=== PATIENT | female | born 1975 | race Two or more races ===

== ENCOUNTER 2024-07-02 17:24 | Emergency (ER) | payer SELFPAY ==
[2024-07-02] VITALS (7 sets, daily range): BP systolic 133–154; BP diastolic 80–107; PULSE 68–98; RESP 14–18; TEMP 36.5–36.7; O2SAT 96–100
--- NOTE | 2024-07-02 17:39 | EKG_ITS ---
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
--- NOTE | 2024-07-02 17:40 | EDNOTE_ITS ---
<Statement entered by Em Matamoros MD - 07/05/24 04:22> As co-signing physician, I was present and available for consult prn. I concur with the plan and care as documented by the midlevel provider. ED Seizures RME/HPI General Chief Complaint: Seizure Stated Complaint: SEIZURES Time Seen by Provider: 07/02/24 17:35 Arrival date/time: 07/02/24 17:24 RME / HPI RME / HPI Narrative: 48-year-old female patient with significant history of hypertension seizure disorder currently taking Keppra 1 g twice daily, last dose earlier this morning, was brought in by EMS for evaluation regarding witnessed tonic-clonic seizure. Apparently patient was having sudden onset of dizziness, blurry vision and suddenly does not remember what happened. Per EMS patient had [id number]-[id number] episode of seizure for total of 7 times lasting for few seconds. No medication was given prior to arrival on my initial evaluation patient was noted to be alert oriented x 3 answer question appropriately denies any other complaints except for headache. Patient did not bite her tongue patient did not have any incontinence. Related Data Home Medications ?Medication ?Instructions ?Recorded ?Confirmed amlodipine 10 mg tablet (Norvasc) 10 mg PO DAILY 01/0801/08/22 losartan 100 1 tab PO QDAY 01/08/2201/08 mg-hydrochlorothiazide 25 mg tablet propranolol 40 mg tablet 40 mg PO DAILY 01/08/2209/22 Previous Rx's ?Medication ?Instructions ?Recorded ferrous sulfate 300 mg (60 mg 300 mg (5 mL) PO BIDWM # 60 mL 01/13/22 iron)/5 mL oral liquid levetiracetam 500 mg/5 mL 1,000 mg (10 mL) IVP BID #60 mL 01/13/22 intravenous solution Allergies Allergy/AdvReac Type Severity Reaction Status Date / Time No Known Allergies Allergy Verified 01/08/22 18:01 Review of Systems Review of Systems Narrative Review of Systems: Review of system reviewed and within normal limits except mentioned in HPI ED Exam Narrative Physical exam: VITAL SIGNS: Reviewed. GENERAL APPEARANCE: Alert and interactive, follows commands, no acute distress, HEAD AND FACE: Non-traumatic. ENT: PERRL, pink conjunctivitis, eyelid no trauma, Mucous membrane moist. NECK: Supple, nontender, no nuchal rigidity. CHEST: No tenderness, no crepitus, no paradoxical movement, no retractions. LUNGS: Clear, well ventilated, symmetric, no rales, no wheezing, no ronchi, no stridor, good breath sounds bilaterally. HEART: Regular rate, regular rhythm, no murmur, no gallops. ABDOMEN: Soft, positive bowel sounds, nondistended, no guarding, nontender, no rebound, no masses, RECTAL: Deferred. GENITAL: Deferred. NEUROLOGICAL: Gross motor function intact sensory function intact, Appropriate for age. MUSCULOSKELETAL: low back nontender, full range of motion. EXTREMITIES: Nontender, full range of motion. SKIN: Color pink, dry, no rash, no lacerations, no abrasions, no contusions. LYMPHATICS: Deferred. Course Quality Measures none Orders Category Date Time Status EKG (ED ONLY) *Do not use* NOW Care 07/02/24 17:39 Completed EKG (ED Only) Stat Exams 07/02/24 17:39 Draft CBC [CBC] Stat Lab 07/02/24 17:45 Completed CMP [Comprehensive Metabolic Panel] Stat Lab 07/02/24 17:45 Completed Lactate (Lactic Acid) Stat Lab 07/02/24 17:45 [address] Review Blood Smear Stat Lab 07/02/24 17:45 Completed UA, C/S IF [Urinalysis, C/S if Indicated] Stat Lab 07/02/24 21:27 Completed Acetaminophen Tab [Tylenol ES Tab] Med 07/02/24 17:42 Discontinued 1,000 mg PO X1 ONE LORazepam [Ativan Inj] Med 07/02/24 17:39 Discontinued 1 mg IVP X1 ONE Ringers Lactated 1000 ml [Lactated Ringers] 1,000 ml Med 07/02/24 17:39 Discontinued IV 999 mls/hr levETIRAcetam INJ [Keppra Inj] Med 07/02/24 17:39 Discontinued 1,000 mg IVP X1 ONE Vital Signs Vital signs: Vital Signs Temperature 98.0 F 07/02/24 17:48 Pulse Rate 73 07/02/24 17:48 Respiratory Rate 15 07/02/24 17:48 Blood Pressure 137/95 H 07/02/24 17:48 Pulse Oximetry (%) 96 07/02/24 17:48 Oxygen Delivery Method Room Air 07/02/24 17:48 Seizure MDM Narrative MDM Narrative:: 48-year-old female patient with significant history of hypertension seizure disorder currently taking Keppra 1 g twice daily, last dose earlier this morning, was brought in by EMS for evaluation regarding witnessed tonic-clonic seizure. Apparently patient was having sudden onset of dizziness, blurry vision and suddenly does not remember what happened. Per EMS patient had efag-ea-uclc episode of seizure for total of 7 times lasting for few seconds. No medication was given prior to arrival on my initial evaluation patient was noted to be alert oriented x 3 answer question appropriately denies any other complaints except for headache. Patient did not bite her tongue patient did not have any incontinence. No recurrence of seizure noted in the emergency room patient is fully back to baseline after patient received IV fluids, Ativan and Keppra IV Patient appears nontoxic and hemodynamically stable. Patient discharged home and instructed to follow-up with neurologist in 24 to 48 hours. Instructed to return to the emergency department immediately if worsening of symptoms Patient data External records reviewed:: None Clinical information provided by:: patient Social determinants that could affect healthcare access:: none Patient has the following chronic illnesses:: Seizure disorder How is presenting disease/condition affected by chronic disease/condition?: exacerbated by Evaluation data The following diagnostics were reviewed and interpreted by me:: lab results and EKG tracing(s) Lab and/or radiology exams considered but not ordered:: None Interpretation Summary: EKG as interpreted by me showed normal sinus rhythm, ventricular rate of [address] segment elevation or depression noted. Patient's workup today all came back unremarkable including normal lactic acid. Medications / Prescriptions Medications or Prescriptions considered but not ordered:: None Medication administrations:: Medication Administration History Discontinued Medications Acetaminophen (Acetaminophen 500 Mg Tablet) 1,000 mg PO X1 ONE Stop: 07/02/24 17:43 Last Admin: 07/02/24 17:55 Dose: 1,000 mg Documented By: AMA Lactated Ringer's (Lactated Ringers) 1,000 mls @ 999 mls/hr IV .Q1H1M ONE Stop: 07/02/24 18:39 Last Infusion: 07/02/24 19:20 Dose: Infused Documented By: Admin: 07/02/24 17:54 Dose: 999 mls/hr Documented By: AMA Levetiracetam (Levetiracetam Inj 100 Mg/Ml Vial 5ml) 1,000 mg IVP X1 ONE Stop: 07/02/24 17:40 Last Admin: 07/02/24 17:53 Dose: 1,000 mg Documented By: VG Lorazepam (Lorazepam 2 Mg/Ml Vial) 1 mg IVP X1 ONE Stop: 07/02/24 17:40 Last Admin: 07/02/24 17:54 Dose: 1 mg Documented By: VG Ativan Keppra and IV fluids and Tylenol Consultations Consultation(s) initiated? (list below): No Diagnosis Seizure Differential Diagnosis: intractable seizure disorder, focal seizure and generalized seizure Most likely diagnosis given after review of the tests above:: Breakthrough seizure Admission Indicated Admission indicated?: not indicated Admission Request Was there a request for admission?: No Disposition Plan Disposition Plan: Discharge Discharge Attestation Discharge Attestation: The patient and all family members were given an opportunity to ask questions and understood the discharge instructions. Discharge instructions specifically effects, indications for sooner follow up or return to the emergency department, and the expected course of current diagnosis. Patient condition: Stable Discharge Plan Plan Patient Disposition: HOME (Self Care) Discharge Disposition comment: Stable Prescriptions/Referrals Prescriptions/Med Rec: No Action losartan-hydrochlorothiazide 100-25 mg Tablet 1 tab PO QDAY propranolol 40 mg Tablet 40 mg PO DAILY amlodipine [Norvasc] 10 mg Tablet 10 mg PO DAILY ferrous sulfate 300 mg (60 mg iron)/5 mL Liquid 300 mg PO BIDWM Qty: 60 0RF levetiracetam 500 mg/5 mL Solution 1,000 mg IVP BID Qty: 60 0RF Referrals: Ky Eastman MD [Primary Care Provider] - In 1 week Problem List Clinical Impression: Breakthrough seizure Patient/Caregiver Discharge Instructions Education Materials: Epilepsy: Safety During a Seizure Additional Instructions: Thank you for the opportunity for serving you today. You are stable for discharged . You are advised to: Follow-up with your neurologist in 1 to 2 days Return to ED for worsening of symptoms Increase oral fluids Please do not skip your seizure medication as instructed by your neurologist Print Language: Grenadian Stand Alone Forms: Jacque Award Info., Patient Portal Info Letter TRISH/DAISY Supervising Physician TRISH/DAISY Supervising Physician: MD Kandis
[2024-07-02] MEDS: levETIRAcetam INJ 100 MG/ML VIAL 5ML 1000 MG IVP (17:53)
[2024-07-02] MEDS: LORazepam 2 MG/ML VIAL 1 MG IVP (17:54)
[2024-07-02] MEDS: RINGERS LACTATED 1000 ML 1,000 ML 999 ML IV (17:54)
[2024-07-02] MEDS: ACETAMINOPHEN 500 MG TABLET 1000 MG PO (17:55)
[2024-07-02 18:09] LABS: Lactate (Lactic Acid) 1.5 mMol/L (0.4-2.0)
[2024-07-02 18:10] LABS: Basophils # (Auto) 0.1 Thou/mm3 (0.0-0.2); Basophils % (Auto) 1 % (0-2.5); Eosinophils # (Auto) 0.1 Thou/mm3 (0.0-0.5); Eosinophils % (Auto) 2 % (0-10); Hematocrit 35.7 % (36.0-46.0); Hemoglobin 11.5 g/dL (12.0-16.0); Immature Granulocytes % (Auto) 0 % (0-0); Immature Granulocytes Auto 0.01 Thou/mm3 (0.00-0.00); Lymphocytes # (Auto) 1.8 Thou/mm3 (1.0-4.8); Lymphocytes % (Auto) 23 % (10-50); Mean Corpuscular HGB Conc 32.2 g/dl (31.0-37.0); Mean Corpuscular Volume 68 fL (80-100); Monocytes # (Auto) 0.6 Thou/mm3 (0.0-0.8); Monocytes % (Auto) 7 % (0-12); Neutrophils % (Auto) 67 % (37-80); Nucleated Red Blood Cell % 0 /100 WBC (0); Platelet Count 308 Thou/mm3 (140-440); RDW Standard Deviation 37.6 fL (36.4-46.3); Red Blood Count 5.22 Miln/mm3 (4.00-5.20); White Blood Count 7.5 Thou/mm3 (3.6-11.0)
[2024-07-02 18:26] LABS: Alanine Aminotransferase 15 U/L (10-49); Albumin, Serum 4.5 gm/dL (3.5-5.0); Albumin/Globulin Ratio 1.5 (1.2-2.2); Alkaline Phosphatase 72 U/L (46-116); Anion Gap 10 (7-16); Aspartate Amino Transferase 19 U/L (0-34); BUN/Creatinine Ratio 12 Ratio (12-20); Bilirubin,Total 0.9 mg/dL (0.3-1.2); Blood Urea Nitrogen 12 mg/dL (9-23); Calcium 9.2 mg/dL (8.3-10.6); Calcium (Corrected) 9.2 mg/dL (8.5-10.1); Carbon Dioxide 28.7 mMol/L (20.0-31.0); Chloride 102 mMol/L (98-107); Glucose 146 mg/dL (74-106); Osmolality,Calculated 283 (275-295); Potassium 3.3 mMol/L (3.4-5.1); Sodium 141 mMol/L (136-145); Total Protein 7.5 gm/dL (5.7-8.2); eGFR > 60 See Note
[2024-07-02 18:28] LABS: Path Review Blood Smear Sent to Pathologist
--- NOTE | 2024-07-02 19:38 | PC.NURSE ---
assisted pt with clean up. pt urinated before bedpan. full body wipe down and llinen change. RN notified.
[2024-07-02 21:44] LABS: Collection Type, Urine Clean Catch
[2024-07-02 22:01] LABS: Bacteria,Urine Rare; Bilirubin,Urine Negative (Negative); Blood,Urine Negative (Negative); Clarity,Urine Clear (Clear/Hazy); Color,Urine Colorless (Lt Yel-Yel); Culture Indicated,Urine Not Indicated; Glucose, Urine Negative (Negative); Ketones,Urine Negative (Negative); Leukocyte Esterase,Urine Negative (Negative); Nitrite,Urine Negative (Negative); PH,Urine 7.5 (5.0-7.0); Protein,Urine Negative (Neg - Trace); RBC,Urine 1 /hpf (0-3); Specific Gravity,Urine 1.008 (1.001-1.035); Squamous Epithelial Cell,Urine 3 /hpf (0-5); Urobilinogen,Urine Negative mg/dL (0.0-1.0); WBC,Urine 1 /hpf (0-5)
--- NOTE | 2024-07-02 22:08 | PC.NURSE ---
readjusted purewick so patient can urinate. pt output 350cc
== END 2024-07-02 22:33 | disposition home or self-care (01) ==
PROVIDERS: Nurse Practitioner Family; Emergency Provider Emergency Medicine; PCP Family Medicine
DX: R56.9 Unspecified convulsions (principal); R94.31 Abnormal electrocardiogram [ECG] [EKG]; I10 Essential (primary) hypertension
CPT/HCPCS: 36415; 80053; 81001; 83605; 85025; 93005; 96360; 99284; J1953; J2060; J7120; A9270